=== PATIENT | female | born 1940 | race Caucasian/White ===

== ENCOUNTER 2017-04-17 14:36 | Inpatient (IN) ==
[2017-04-17] MEDS ORDERED: *HR* Dextrose 50 % in Water (Syg) 50 ML SYRINGE IVP PRN (15:53)
[2017-04-17] MEDS ORDERED: D5% in Water 1,000 ML IVC PRN (15:53)
[2017-04-17] MEDS ORDERED: Dextrose Gel 15 GM PO PRN ×2 (15:53)
[2017-04-17] MEDS ORDERED: NON-FORMULARY MEDICATION 1 EACH EACH (Insulin Lispro [Humalog] 0 UNIT) SQ SCH (17:00)
[2017-04-17] MEDS: Insulin LISPRO 300 UNITS/3 ML VIAL SQ SCH ×2 (17:46→20:30)
[2017-04-17] MEDS: Insulin DETEMIR 100 UNIT/ML X5UNITS SQ SCH (20:30)
[2017-04-17] MEDS: Melatonin 3 MG TABLET PO PRN (20:39)
[2017-04-17] MEDS: *HR* HYDROcodone/Acet 5/325 mg TABLET PO PRN (23:34)
[2017-04-18] MEDS: Nitroglycerin 0.4 MG TAB.SUBL SL PRN ×2 (05:41→12:36)
[2017-04-18 07:20] LABS: Basophils # 0.1 K/mcL (0.0-0.2); Basophils % 0.7 %; Eosinophils # 0.2 K/mcL (0.0-0.6); Eosinophils % 1.2 %; Hematocrit 34.8 % (35.3-44.9); Hemoglobin 11.7 g/dL (11.5-15.4); Immature Granulocytes % 0.2 % (0-4); Lymphocytes # 3.4 K/mcL (0.6-4.6); Lymphocytes % 28.1 %; Mean Corpuscular HGB Conc 33.6 g/dL (31.6-35.5); Mean Corpuscular Hemoglobin 30.9 pg (28.0-33.3); Mean Corpuscular Volume 91.8 fL (83.0-100.0); Mean Platelet Volume 10.8 fL (9.4-12.4); Monocytes # 1.1 K/mcL (0.0-1.3); Monocytes % 9.2 %; Neutrophils # 7.3 K/mcL (1.6-8.9); Platelet Count 229 K/mcL (140-400); Red Blood Count 3.79 M/mcL (3.82-4.97); Red Cell Distribution Width 13.1 % (11.5-14.5); Segmented Neutrophils % 60.6 %
[2017-04-18 07:34] LABS: Prothrombin Time 11.1 Seconds (9.4-12.1)
[2017-04-18] MEDS: Insulin LISPRO 300 UNITS/3 ML VIAL SQ SCH ×4 (08:02→20:09)
[2017-04-18 08:49] LABS: BUN/Creatinine Ratio 17 (6-26); Blood Urea Nitrogen 14 mg/dL (7-20); Carbon Dioxide 23 mEq/L (19-29); Chloride 105 mEq/L (98-109); Glucose 188 mg/dL (70-99); Osmolality,Calculated 293 (280-300); Potassium 3.7 mEq/L (3.5-4.5); Sodium 139 mEq/L (136-145); eGFR For African Americans > 60 (> 60); eGFR For Non-African Americans > 60 (> 60)
[2017-04-18] MEDS: Aspirin Enteric Coated 81 MG Tablet PO SCH (09:31)
[2017-04-18] MEDS: Insulin DETEMIR 100 UNIT/ML X5UNITS SQ SCH ×2 (09:32→20:07)
--- NOTE | 2017-04-18 15:34 | Internal Med History&Physical ---
Date of Encounter: 04/18/17 Time of Encounter: 15:15 Assessment and Plan (1) Carotid stenosis, bilateral Current visit: No Status: Chronic Status post right CEA 04/16/2017. Continue aspirin, Plavix, and follow-up with surgeon as directed (2) Diabetes Current visit: No Status: Chronic Hemoglobin A1c was 8.2% on 03/19/2017. Continue Levemir and Accu-Cheks with SSI. Qualifiers: Diabetes mellitus type: type 2 Diabetes mellitus complication status: without complication Diabetes mellitus termite helper insulin use: with termite helper use Qualified Code(s): E11.9 - Type 2 diabetes mellitus without complications ; Z79.4 - halfway (current) use of insulin; Z79.4 - local intermodal truck driver (current) use of insulin; Z79.4 - local intermodal truck driver (current) use of insulin; Z79.4 - local intermodal truck driver ( current) use of insulin (3) CVA (cerebral vascular accident) Current visit: No Status: Acute Continue aspirin and Plavix with therapy. Qualifiers: CVA mechanism: stenosis Precerebral and cerebral artery: posterior cerebral artery Laterality of affected vessel: right Qualified Code(s): I63.531 - Cerebral infarction due to unspecified occlusion or stenosis of right posterior cerebral artery Internal Medicine - H&P: HPI Chief complaint: Postop right CEA Admitted From: Hospital to Hospital Transfer Plans for Post Hospital Care: Home History of present illness: Ms. Langley is a 77 year old female who was readmitted to [facility] swing bed April 17 following a March 21 - April 15 swing bed stay after [facility] hospitalization March 18 for moderate to large acute infarct in the right temporal/occipital lobe and lacunar infarcts in the right thalamus. Doppler studies showed 90% DEL and 50% LICA stenosis. She was maintained on aspirin and Plavix during swing bed stay. She underwent right carotid endarterectomy by Dr. Hughes at [facility]. Her postoperative course was unremarkable and she was readmitted to swing bed for ongoing therapy. She reports previous CVA approximately 2003 with slight left-sided residual weakness. She denies seizures or other neurologic problems. Past Med Surg Social Fam HX - Past Medical History Medical history: CVA, diabetes Psychiatric history: no psych history - Past Surgical History Surgical History: - Social History Smoking Status: Former smoker Smokeless Tobacco Status: No Alcohol use: none Drug use: none - Family History Brother Hx Family Endocrine Disorder: Yes (DM) Internal Medicine - H&P: Meds Aspirin [Lo-Dose Aspirin EC] 81 mg PO DAILY 03/17/17 [History] Atorvastatin [Lipitor] 20 mg PO HS tablet 03/21/17 [Rx] Clopidogrel [Plavix] 75 mg PO DAILY tablet 03/21/17 [Rx] Docusate [Colace] 100 mg PO DAILY PRN 04/16/17 [History] Insulin DETEMIR [Levemir] 10 unit SQ BID 04/16/17 [History] Insulin LISPRO [Humalog] 2 - 7 unit SQ ACHS 04/16/17 [History] Melatonin 5 mg PO HS PRN 04/16/17 [History] HYDROcodone/Acet 5/325 mg [[place] 5-325 mg] 1 tab PO Q6HR PRN #16 tablet [Rx] 3 Allergy/AdvReac Type Severity Reaction Status Date / Time No Known Allergies Allergy Verified 03/17/17 21:43 All Systems PM: A 10-system review of systems was performed and is negative for pertinent findings except as documented above in the HPI. Review of systems: Review of systems from her March 2017 [facility] hospitalization were reviewed and revised as below. Gen.: She states her weight has increased at least 15 pounds in the past year, unintentionally Cardiovascular: She denies VT hypertension heart failure angina DVT or pulmonary embolus. Respiratory: She smoked from age [age] but states only 2-3 cigarettes per day. She denies chronic lung disease. GI: She denies disorders of her liver gallbladder or exocrine pancreas : She denies hematuria dysuria or kidney stones Neurologic: As per history of present illness Endocrine: She was diagnosed with DM 2 approximately 20 years ago. Hemoglobin A1c was 8.2% on 03/19/2017. She denies thyroid disease. Lipid profile showed total cholesterol 188, triglycerides 142, HDL 44, and LDL 116 with total/HDL ratio 4.30 on 03/19/2017. Hematology/oncology: She denies blood disorders cancers or anemia Psychiatric: She denies anxiety depression or other mental health issues Musk skeletal: She denies arthritis gout or other bone joint or muscle disorders. - Constitutional Vitals: Temp Pulse Resp BP Pulse Ox 98.1 F 73 20 135/61 100 04/18/17 07:46 04/18/17 14:14 04/18/17 12:02 04/18/17 14:14 04/18/17 14:14 Exam: Gen.: She is a well-developed well-nourished female lying in bed who appears in no acute distress HEENT: Head is atraumatic and normocephalic. Eyes: EOMI. There is no scleral icterus. Mouth: Mucosa is moist. Neck: She has a right carotid endarterectomy incision with jamshid-incisional ecchymosis. There is no significant erythema or drainage from the wound. Heart: Regular without murmurs gallops or ectopics Lungs: No wheezes or crackles were heard. Abdomen: Soft and nontender. No masses or guarding noted. Extremities: There is no cyanosis edema, or clubbing noted. Dorsalis pedis and posterior tibial pulses are trace to 1+ palpable bilaterally. Neurologic: Mental status: She is able to answer a few questions but is minimally conversational. Cranial nerves: Smile is symmetric. Forehead wrinkles bilaterally. Tongue protrudes midline. EOMI. Motor: She has difficulty extending her arms because of pain in her shoulders. There is no obvious pronator drift. Cerebellar: Finger to nose is intact bilaterally. Skin: Warm and dry. Internal Med - H&P Results - Labs CBC & Chem 7: 04/18/17 06:25 04/18/17 06:25 Labs: Short CBC 04/18/17 Range/Units 06:25 WBC 12.1 H (4.3-11.1) K/mcL Hgb 11.7 (11.5-15.4) g/dL Hct 34.8 L (35.3-44.9) % Plt Count 229 (140-400) K/mcL Neutrophils # 7.3 (1.6-8.9) K/mcL BMP 04/18/17 06:25 Sodium 139 Potassium 3.7 Chloride 105 Carbon Dioxide 23 BUN 14 Creatinine 0.82 Glucose 188 H Calcium 9.0
[2017-04-18] MEDS: Melatonin 3 MG TABLET PO PRN (20:06)
[2017-04-19] MEDS: Insulin LISPRO 300 UNITS/3 ML VIAL SQ SCH ×4 (07:24→20:09)
[2017-04-19] MEDS: Insulin DETEMIR 100 UNIT/ML X5UNITS SQ SCH ×2 (09:23→20:09)
[2017-04-19] MEDS: Aspirin Enteric Coated 81 MG Tablet PO SCH (09:23)
[2017-04-19] MEDS: Melatonin 3 MG TABLET PO PRN (20:09)
[2017-04-19] MEDS: *HR* HYDROcodone/Acet 5/325 mg TABLET PO PRN (23:04)
[2017-04-20] MEDS: Aspirin Enteric Coated 81 MG Tablet PO SCH (08:32)
[2017-04-20] MEDS: Insulin LISPRO 300 UNITS/3 ML VIAL SQ SCH ×4 (08:40→19:48)
[2017-04-20] MEDS: Insulin DETEMIR 100 UNIT/ML X5UNITS SQ SCH ×2 (08:40→19:48)
[2017-04-20] MEDS ORDERED: Simethicone 80 MG TAB.CHEW PO PRN (12:36)
--- NOTE | 2017-04-20 12:40 | Internal Med Progress Note ---
Date of Encounter: 04/20/17 Time of Encounter: 12:30 - Assessment and plan (1) Carotid stenosis, bilateral Current Visit: No Status: Chronic Assessment and plan: April 20. Status post right CEA 04/16/2017. Continue aspirin, Plavix, and follow-up with surgeon (2) Diabetes Current Visit: No Status: Chronic Assessment and plan: April 20. Hemoglobin A1c was 8.2% on 03/19/2017. Continue Levemir and Accu- Cheks with SSI Qualifiers: Diabetes mellitus type: type 2 Diabetes mellitus complication status: without complication Diabetes mellitus senior living insulin use: with senior living use Qualified Code(s): E11.9 - Type 2 diabetes mellitus without complications ; Z79.4 - exterminator helper termite (current) use of insulin; Z79.4 - exterminator helper termite (current) use of insulin; Z79.4 - residential (current) use of insulin; Z79.4 - exterminator helper termite ( current) use of insulin (3) CVA (cerebral vascular accident) Current Visit: No Status: Acute Assessment and plan: April 20. Continue aspirin, Plavix, and therapy intervention. Qualifiers: CVA mechanism: stenosis Precerebral and cerebral artery: posterior cerebral artery Laterality of affected vessel: right Qualified Code(s): I63.531 - Cerebral infarction due to unspecified occlusion or stenosis of right posterior cerebral artery (4) Abdominal pain Current Visit: Yes Status: Acute Assessment and plan: We will give simethicone for distention. We will order KUB to further evaluate. Qualifiers: Abdominal location: epigastric Qualified Code(s): R10.13 - Epigastric pain - Subjective Interval history: April 20. She complains of significant pain in her epigastric area. She has nausea but no vomiting. - Constitutional Vitals: Temp Pulse Resp BP Pulse Ox 98.2 F 76 17 141/81 99 04/20/17 07:20 04/20/17 07:20 04/20/17 07:20 04/20/17 07:20 04/20/17 07:20 Exam: She has tenderness in her epigastric area and appears to have abdominal distention overall. Bowel sounds are present and slightly high-pitched. Heart is regular without murmurs gallops or ectopics. Lungs are clear anteriorly. Extremities show no edema. Internal Medicine: Result - Labs CBC & Chem 7: 04/18/17 06:25 04/18/17 06:25 - ABG Interpretation ABG results: PT/INR, D-dimer PT 11.1 Seconds (9.4-12.1) 04/18/17 06:25
--- NOTE | 2017-04-20 17:09 | Electrocardiograph Report ---
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
[2017-04-21] MEDS: *HR* HYDROcodone/Acet 5/325 mg TABLET PO PRN ×2 (02:28→20:01)
[2017-04-21] MEDS: Aspirin Enteric Coated 81 MG Tablet PO SCH (09:39)
[2017-04-21] MEDS: Insulin DETEMIR 100 UNIT/ML X5UNITS SQ SCH ×2 (09:39→20:05)
[2017-04-21] MEDS: Insulin LISPRO 300 UNITS/3 ML VIAL SQ SCH ×3 (09:40→17:00)
[2017-04-21 14:15] LABS: ABG Base Excess -2 mEq/L (-2 to 3); ABG HCO3 22 mEq/L (21-27); ABG Oxygen Saturation 96 % (95-98); ABG PCO2 33 mmHg (35-45); ABG PH 7.43 pH Units (7.32-7.45); ABG PO2 76 mmHg (85-104); ABG TCO2 23 mEq/L (20-26)
--- NOTE | 2017-04-21 19:43 | Internal Med Progress Note ---
Date of Encounter: 04/21/17 Time of Encounter: 13:45 - Assessment and plan (1) Carotid stenosis, bilateral Current Visit: No Status: Chronic Assessment and plan: April 20. Status post right CEA 04/16/2017. Continue aspirin, Plavix, and follow-up with surgeon (2) Diabetes Current Visit: No Status: Chronic Assessment and plan: April 20. Hemoglobin A1c was 8.2% on 03/19/2017. Continue Levemir and Accu- Cheks with SSI Qualifiers: Diabetes mellitus type: type 2 Diabetes mellitus complication status: without complication Diabetes mellitus intermediate insulin use: with intermediate use Qualified Code(s): E11.9 - Type 2 diabetes mellitus without complications ; Z79.4 - ferry terminal agent (current) use of insulin; Z79.4 - ferry terminal agent (current) use of insulin; Z79.4 - ferry terminal agent (current) use of insulin; Z79.4 - ferry terminal agent ( current) use of insulin (3) CVA (cerebral vascular accident) Current Visit: No Status: Acute Assessment and plan: April 20. Continue aspirin, Plavix, and therapy intervention. Qualifiers: CVA mechanism: stenosis Precerebral and cerebral artery: posterior cerebral artery Laterality of affected vessel: right Qualified Code(s): I63.531 - Cerebral infarction due to unspecified occlusion or stenosis of right posterior cerebral artery (4) Abdominal pain Current Visit: Yes Status: Acute Assessment and plan: April 20. We will give simethicone for distention. We will order KUB to further evaluate. April 21. KUB was unremarkable. She has no abdominal complaints now. Will not workup further. Qualifiers: Abdominal location: epigastric Qualified Code(s): R10.13 - Epigastric pain (5) Syncope Current Visit: Yes Status: Acute Assessment and plan: April 21. Unwitnessed. She has regained full consciousness without any neurologic deficit. We will continue to monitor. Qualifiers: Syncope type: unspecified Qualified Code(s): R55 - Syncope and collapse - Subjective Interval history: April 20. She complains of significant pain in her epigastric area. She has nausea but no vomiting. April 21. She was found unresponsive in the chair at bedside. A rapid response was called. She had stable heart rate blood pressure and blood glucose. She regained consciousness in a few minutes and had no focal neurologic deficit. She has no complaints at present time. - Constitutional Vitals: Temp Pulse Resp BP Pulse Ox 98.4 F 89 16 134/66 98 04/21/17 19:04 04/21/17 19:04 04/21/17 19:04 04/21/17 19:04 04/21/17 19:04 Exam: She is resting comfortably in bed and appears in no acute distress. She moves her left arm as before. The right arm moves normally. She is appropriate in conversation. I reviewed her medications and lab results. Internal Medicine: Result - Labs CBC & Chem 7: 04/18/17 06:25 04/18/17 06:25 - ABG Interpretation ABG results: ABG ABG pH 7.43 pH Units (7.32-7.45) 04/21/17 14:12 ABG pCO2 33 mmHg (35-45) L 04/21/17 14:12 ABG pO2 76 mmHg (85-104) L 04/21/17 14:12 ABG O2 Saturation 96 % (95-98) 04/21/17 14:12 PT/INR, D-dimer PT 11.1 Seconds (9.4-12.1) 04/18/17 06:25 Consult Discharge Plan - Plan Referrals: NONE,PCP [Primary Care Provider] - 1 week
[2017-04-21] MEDS: Melatonin 3 MG TABLET PO PRN (20:01)
[2017-04-22] MEDS: Insulin LISPRO 300 UNITS/3 ML VIAL SQ SCH ×5 (05:21→21:57)
[2017-04-22] MEDS: Aspirin Enteric Coated 81 MG Tablet PO SCH (07:44)
[2017-04-22] MEDS: Insulin DETEMIR 100 UNIT/ML X5UNITS SQ SCH ×2 (11:17→21:56)
[2017-04-22] MEDS: *HR* HYDROcodone/Acet 5/325 mg TABLET PO PRN ×2 (18:05→21:21)
--- NOTE | 2017-04-22 19:01 | Electrocardiograph Report ---
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
[2017-04-22] MEDS: Melatonin 3 MG TABLET PO PRN (21:23)
[2017-04-23] MEDS: Aspirin Enteric Coated 81 MG Tablet PO SCH (10:14)
[2017-04-23] MEDS: Insulin DETEMIR 100 UNIT/ML X5UNITS SQ SCH ×2 (10:14→23:44)
[2017-04-23] MEDS: Insulin LISPRO 300 UNITS/3 ML VIAL SQ SCH ×4 (10:16→23:44)
--- NOTE | 2017-04-23 15:29 | Internal Med Progress Note ---
Date of Encounter: 04/23/17 Time of Encounter: 15:20 - Assessment and plan (1) Carotid stenosis, bilateral Current Visit: No Status: Chronic Assessment and plan: April 20. Status post right CEA 04/16/2017. Continue aspirin, Plavix, and follow-up with surgeon April 23. Her right neck incision is healing well. She has had no change in her neurologic status over the past few days from the completed stroke and syncopal episode. She will be discharged home tomorrow on medical therapy of aspirin and Plavix. She will follow-up with her surgeon as directed. She will need a tub transfer bench and front wheeled walker. She will need a standard wheelchair with foot rests, elevated leg rests, and anti-Tipper (all 2). She has mobility limitations that impairs her ability to bathe and toilet. The mobility limitation of the improved with a cane or walker. Use a manual wheelchair will significantly improve her ability to participate in ADLs within the home and she will use it on regular basis. She has not expressed unwillingness to use a wheelchair in the home. She has a capable caregiver available willing to provide assistance with the wheelchair. (2) Diabetes Current Visit: No Status: Chronic Assessment and plan: April 20. Hemoglobin A1c was 8.2% on 03/19/2017. Continue Levemir and Accu- Cheks with SSI April 23. Blood sugars reviewed. Will increase Levemir to 14 units twice a day. Qualifiers: Diabetes mellitus type: type 2 Diabetes mellitus complication status: without complication Diabetes mellitus fpc insulin use: with fpc use Qualified Code(s): E11.9 - Type 2 diabetes mellitus without complications ; Z79.4 - detention (current) use of insulin; Z79.4 - termite technician (current) use of insulin; Z79.4 - termite technician (current) use of insulin; Z79.4 - termite technician ( current) use of insulin (3) CVA (cerebral vascular accident) Current Visit: No Status: Acute Assessment and plan: April 20. Continue aspirin, Plavix, and therapy intervention. She will need DME as per above Qualifiers: CVA mechanism: stenosis Precerebral and cerebral artery: posterior cerebral artery Laterality of affected vessel: right Qualified Code(s): I63.531 - Cerebral infarction due to unspecified occlusion or stenosis of right posterior cerebral artery (4) Abdominal pain Current Visit: Yes Status: Acute Assessment and plan: April 20. We will give simethicone for distention. We will order KUB to further evaluate. April 21. KUB was unremarkable. She has no abdominal complaints now. Will not workup further. April 23. Remains resolved. Qualifiers: Abdominal location: epigastric Qualified Code(s): R10.13 - Epigastric pain (5) Syncope Current Visit: Yes Status: Acute Assessment and plan: April 21. Unwitnessed. She has regained full consciousness without any neurologic deficit. We will continue to monitor. April 23. No further recurrence. We will observe without further workup. Qualifiers: Syncope type: unspecified Qualified Code(s): R55 - Syncope and collapse - Subjective Interval history: April 20. She complains of significant pain in her epigastric area. She has nausea but no vomiting. April 21. She was found unresponsive in the chair at bedside. A rapid response was called. She had stable heart rate blood pressure and blood glucose. She regained consciousness in a few minutes and had no focal neurologic deficit. She has no complaints at present time. April 23. She has no new complaints. She has had no further syncopal or near syncopal episodes. She feels well and anticipates being discharged home tomorrow. - Constitutional Vitals: Temp Pulse Resp BP Pulse Ox 98.3 F 71 16 143/58 94 04/23/17 06:50 04/23/17 06:50 04/23/17 06:50 04/23/17 06:50 04/23/17 06:50 Exam: She is sitting in a chair at bedside resting currently. Her affect is bright and cheerful. I reviewed her medications and lab results. Internal Medicine: Result - Labs CBC & Chem 7: 04/18/17 06:25 04/18/17 06:25 - ABG Interpretation ABG results: ABG ABG pH 7.43 pH Units (7.32-7.45) 04/21/17 14:12 ABG pCO2 33 mmHg (35-45) L 04/21/17 14:12 ABG pO2 76 mmHg (85-104) L 04/21/17 14:12 ABG O2 Saturation 96 % (95-98) 04/21/17 14:12 PT/INR, D-dimer PT 11.1 Seconds (9.4-12.1) 04/18/17 06:25 Consult Discharge Plan - Plan Referrals: NONE,PCP [Primary Care Provider] - 1 week
[2017-04-23] MEDS: *HR* HYDROcodone/Acet 5/325 mg TABLET PO PRN (21:18)
[2017-04-23] MEDS: Melatonin 3 MG TABLET PO PRN (21:19)
[2017-04-24 06:36] VITALS: BP 142/70
[2017-04-24] MEDS: Insulin LISPRO 300 UNITS/3 ML VIAL SQ SCH (08:48)
[2017-04-24] MEDS: Aspirin Enteric Coated 81 MG Tablet PO SCH (08:49)
[2017-04-24] MEDS: Insulin DETEMIR 100 UNIT/ML X5UNITS SQ SCH (08:49)
--- NOTE | 2017-04-24 10:10 | Discharge Summary ---
Date of Encounter: 04/24/17 Time of Encounter: 10:00 - Discharge Diagnosis (1) Carotid stenosis, bilateral Priority: Primary Status: Chronic (2) Diabetes Priority: Secondary Status: Chronic Qualifiers: Diabetes mellitus type: type 2 Diabetes mellitus complication status: without complication Diabetes mellitus intermediate school teacher insulin use: with intermediate school teacher use Qualified Code(s): E11.9 - Type 2 diabetes mellitus without complications ; Z79.4 - shelter (current) use of insulin; Z79.4 - ferry terminal agent (current) use of insulin; Z79.4 - ferry terminal agent (current) use of insulin; Z79.4 - ferry terminal agent ( current) use of insulin (3) CVA (cerebral vascular accident) Priority: Secondary Status: Acute Qualifiers: CVA mechanism: stenosis Precerebral and cerebral artery: posterior cerebral artery Laterality of affected vessel: right Qualified Code(s): I63.531 - Cerebral infarction due to unspecified occlusion or stenosis of right posterior cerebral artery (4) Syncope Priority: Secondary Status: Acute Qualifiers: Syncope type: unspecified Qualified Code(s): R55 - Syncope and collapse - Discharge Medications Home Medications: Aspirin [Lo-Dose Aspirin EC] 81 mg PO DAILY 03/17/17 [History] Atorvastatin [Lipitor] 20 mg PO HS tablet 03/21/17 [Rx] Clopidogrel [Plavix] 75 mg PO DAILY tablet 03/21/17 [Rx] Docusate [Colace] 100 mg PO DAILY PRN 04/16/17 [History] Insulin LISPRO [Humalog] 2 - 7 unit SQ ACHS 04/16/17 [History] Melatonin 5 mg PO HS PRN 04/16/17 [History] HYDROcodone/Acet 5/325 mg [[place] 5-325 mg] 1 tab PO Q6HR PRN #16 tablet [Rx] Insulin DETEMIR [Levemir] 15 unit SQ BID 30 Days 04/24/17 [Rx] Allergies/Adverse Reactions: 3 Allergy/AdvReac Type Severity Reaction Status Date / Time No Known Allergies Allergy Verified 03/17/17 21:43 Procedures/tests Complete & Pending: Procedures Performed prior 72 hours Category Date Time Status EKG [ECG 12 lead ECG] [ECG] Stat Y 04/21/17 14:05 Completed Date of admission: 04/17/17 15:34 Primary care physician: PCP NONE Consults: 04/17/17 14:41 Consult to Occupational Therapy [CONS] Routine Comment: weakness Reason for Consult: Eval, Develop, and Implement P.O.C. Consult to Physical Therapy [CONS] Routine Comment: weakness Reason for Consult: Eval, Develop, and Implement P.O.C. Consult to Crusher Assembler [CONS] Routine Reason for SW Consult: D/C planning 04/18/17 16:52 Consult to Speech Therapy [CONS] Routine Comment: Evaluate, develop and implement POC Reason for Consult: CVA, cognition and speech deficits Call Completed: No - Patient Status Disposition: Home Health Service Functional capacity at discharge: wheelchair bound Overall status at discharge: patient is progressing back to baseline - Discharge Instructions Follow Up With: NONE,PCP [Primary Care Provider] - 1 week - Diet and Activity Activity: as per physical therapy Diet: advance to your usual diet Hospital course: Ms. Langley is a 77 year old female who was readmitted to [facility] swing bed April 17 following a March 21 - April 15 swing bed stay after [facility] hospitalization March 18- for moderate to large acute infarct in the right temporal/occipital lobe and lacunar infarcts in the right thalamus. Doppler studies showed 90% DEL and 50% LICA stenosis. She was maintained on aspirin and Plavix during swing bed stay. She underwent right carotid endarterectomy by Dr. Hughes at [facility]. Her postoperative course was unremarkable and she was readmitted to swing bed for ongoing therapy. She continue with aspirin and Plavix. She had a brief episode of loss of consciousness on April 21. A rapid response was called but she regained full consciousness without neurologic deficit in a few minutes. She had no further recurrence of similar episodes. Levemir dose was adjusted to improve blood sugars. On April 24 arrangements were complete for her to be discharged home. She will follow with her PCP within one week. She will have home health nurse, aide , and PT/OT. - Time Spent with Patient Total time spent providing and/or coordinating discharge services: - Constitutional Vitals: Temp Pulse Resp BP Pulse Ox 98 F 81 18 142/70 97 04/24/17 06:35 04/24/17 06:35 04/24/17 06:35 04/24/17 06:35 04/24/17 06:35
--- NOTE | 2017-04-24 10:17 | Physician Discharge Referral ---
Home Health/Hosp Referral Info Transfer to: Home Health Attending Provider: Shaun Provider in Charge Post Discharge: PCP - Diagnosis (1) Carotid stenosis, bilateral Priority: Primary Status: Chronic (2) Diabetes Priority: Secondary Status: Chronic (3) CVA (cerebral vascular accident) Priority: Secondary Status: Acute (4) Syncope Priority: Secondary Status: Resolved - Respiratory Orders Smoking Cessation: Smoking cessation has been advised. For more information, call the [place] Tobacco Quit Line at 7-136-ZVUC-NOW. - Diet/Nutrition Diet/Nutrition Orders: No Concentrated Sweets - Activity Activity Orders: Walker - Services Needed Following services are medically necessary services: Nursing, Home Health Aide, Physical Therapy, Occupational Therapy - Transfer Medications Home Medications: Aspirin [Lo-Dose Aspirin EC] 81 mg PO DAILY 03/17/17 [History] Atorvastatin [Lipitor] 20 mg PO HS tablet 03/21/17 [Rx] Clopidogrel [Plavix] 75 mg PO DAILY tablet 03/21/17 [Rx] Docusate [Colace] 100 mg PO DAILY PRN 04/16/17 [History] Insulin LISPRO [Humalog] 2 - 7 unit SQ ACHS 04/16/17 [History] Melatonin 5 mg PO HS PRN 04/16/17 [History] HYDROcodone/Acet 5/325 mg [[place] 5-325 mg] 1 tab PO Q6HR PRN #16 tablet [Rx] Insulin DETEMIR [Levemir] 15 unit SQ BID 30 Days 04/24/17 [Rx] Allergies/Adverse Reactions: 3 Allergy/AdvReac Type Severity Reaction Status Date / Time No Known Allergies Allergy Verified 03/17/17 21:43 Certification: Further, I certify that my clinical findings support that this patient is homebound (i.e. absences from home require considerable and taxing effort and are for medical reasons or nondenominational services or infrequently or short duration when for other reasons) because: Homebound Reason: Leaving home requires considerable and taxing effort due to condition (Limited mobility secondary to CVA) Attestation: My signature below is to certify that this patient is under my care and that I, or nurse practitioner, or a physician's surveyor's assistant working with me, has a face-to -face encounter with this patient.
[2017-04-24] MEDS ORDERED: FLUARIX QUAD 2017-18 36MOS UP/PF 0.5 ML SYRINGE IM ONE (10:28)
== END 2017-04-24 11:00 | disposition home health service (06) | DRG 949 ==
LOC: INPPIK 15:34
PROVIDERS: ADMIT Internal Medicine; ATTEND Internal Medicine

== ENCOUNTER 2018-01-22 18:18 | Inpatient (IN) ==
--- NOTE | 2018-01-22 18:27 | Emergency Department Note ---
Disposition Clinical Impression: Hypoglycemia, Recent myocardial infarction Disposition: Admitted As Inpatient Condition: Fair Forms: ED Satisfaction Letter Time of Disposition: 20:31 ([place]) Altered Mental Status HPI - General Chief Complaint: ED Altered Mental Status Stated Complaint: low blood sugar Time Seen by Provider: 01/22/18 18:18 Source: patient Mode of arrival: ambulatory Limitations: no limitations Nursing Notes Reviewed: Yes Vital Signs Reviewed: Yes - History of Present Illness HPI Narrative: Pleasant elderly female recently hospitalized at [facility] for a large extensive inferior wall AL with the patient ultimately resulting on hospice at home patient now presents here to the emergency room has had a history of a stroke and a recent inferior wall myocardial infarction who had a hypoglycemic event prior to arrival patient apparently dropped her sugar just prior to eating family try to call hospice but they did not respond as result they called 911 had patient brought to the ER for evaluation workup shows that the patient was hypo-glycemic at the scene but now appears to be normal glycemic is now starting to become much more responsive spoke with family about concerns of whether she had possibly had a further extension of myocardial infarction because of her history she we resulted in having an elevated troponin she'll be admitted for observation will repeat troponin during the night make sure that there was no further episodes of any further worsening of the cardiac disease transfer to [facility] complaint: altered mental status Onset (ago): Just FAST FOOD FRY COOK Timing confirmed by: spouse (Patient noted sugar of 46) Pain Severity: unable Consistency of Symptoms: getting worse Context: diabetes, other (Diabetic recent AL home for less than 24 hours from the hospital) Associated symptoms: Reports: malaise, weakness. Denies: chest pain, cough, diaphoresis, fever, chills, loss of appetite, nausea/vomiting, rash, seizure, syncope, foul smelling urine, difficulty walking, diarrhea, incontinence Treatments prior to arrival: glucose, IV fluid - Related Data Home Medications Medication Instructions Recorded Confirmed Docusate [Colace] 100 mg PO DAILY PRN 04/16/17 01/18/18 Melatonin 5 mg PO HS PRN 04/16/17 01/18/18 Aspirin [Lo-Dose Aspirin EC] 81 mg PO DAILY 01/18/18 01/18/18 Flavoxate HCl 100 mg PO TID 01/18/18 01/18/18 Insulin ASPART [NovoLOG] 15 unit SQ TIDWM 01/18/18 01/18/18 Previous Rx's Medication Instructions Recorded Atorvastatin [Lipitor] 20 mg PO HS tablet 03/21/17 Clopidogrel [Plavix] 75 mg PO DAILY tablet 03/21/17 HYDROcodone/Acet 5/325 mg [[place] 1 tab PO Q6H PRN 7 Days #28 tab 01/20/18 5-325 mg] Haloperidol Oral Conc [Haldol] 2 mg PO TID PRN 7 Days #15 mls 01/20/18 MORPHINE SUL Oral CONC [Roxanol 5 mg PO Q4H PRN 7 Days #15 ml 01/20/18 Oral Conc] Ondansetron ODT [Zofran ODT] 4 mg SL Q6HR PRN 7 Days #28 01/20/18 tab.rapdis Furosemide [Lasix] 40 mg PO DAILY #30 tablet 01/21/18 Insulin DETEMIR [Levemir] 15 unit SQ BID #2 vial 01/21/18 Sennosides/Docusate Sodium [Senna 1 each PO BID #60 tablet 01/21/18 Plus] Allergies Allergy/AdvReac Type Severity Reaction Status Date / Time No Known Allergies Allergy Verified 01/18/18 12:37 All systems ED: reviewed and negative except as stated. Review of Systems: As Per HPI Constitutional: Denies: fever, chills, weakness Eyes: Denies: eye pain, eye discharge ENT ED: Denies: ear pain Cardiovascular: Denies: chest pain Respiratory: Denies: cough, dyspnea Gastrointestinal: Denies: abdominal pain, nausea Genitourinary: Denies: urgency, dysuria Musculoskeletal: Denies: back pain, neck pain Integumentary: Denies: rash, abrasion, lesions Neurological: Reports: weakness, confusion. Denies: headache Psychiatric: Denies: anxiety, depression Endocrine: Reports: fatigue, polydipsia, polyuria. Denies: heat or cold intolerance Hematological/Lymphatic: Denies: easy bleeding, easy bruising Allergic/Immunologic: Denies: facial swelling Past Medical History - Past Medical History Attestation: Yes The following information was validated with the patient. Source: patient, old records reviewed, nursing notes reviewed Medical history: Reports: CVA Surgical history: Reports: Psychiatric history: Reports: no psych history - Social History Smoking Status: Never smoker Smokeless Tobacco Status: No Alcohol use: Reports: none Drug use: Reports: none Physical Exam - General Limitations: no limitations General appearance: alert, in no apparent distress, lethargic - Head Head exam: atraumatic, normocephalic, normal inspection - Eye Eye exam: Present: normal appearance, PERRL, EOMI - ENT ENT exam: normal exam, normal oropharynx, mucous membranes moist, TM's normal bilaterally, normal external ear exam - Neck Neck exam: Present: normal inspection, full ROM, trachea midline - Chest Chest inspection: Present: normal inspection, symmetric chest wall rise - Respiratory Respiratory exam: Present: normal lung sounds bilaterally - Cardiovascular Cardiovascular exam: Present: regular rate, normal rhythm, normal heart sounds - Abdominal Exam Abdominal exam: Present: soft, Non-Tender, normal bowel sounds - Extremities Exam Extremities exam: Present: normal inspection, normal capillary refill, other ( Very limited use of the left hand side as result of a extensive stroke). Absent : full ROM, pedal edema, joint swelling - Back Exam Back exam: Present: normal inspection - Neurological Exam Neurological exam: Present: oriented X3, other (Easily aroused elderly female) - Psychiatric Psychiatric exam: Present: normal affect, normal mood - Skin Skin exam: Present: warm, dry, intact, normal color Course Course Narrative: Patient immediately seen and examined the patient was noted to have a sugar of 112 diabetic order was written for an urinalysis laboratory data was done with results having been obtained patient is noted to have a troponin 2.49 the patient had a recent AL as a result this may be an actually downgoing number but with the patient's recent hypoglycemia the body may be stressed we need to make sure that she did not have any recent risk for a recurrent injury she is still under hospice she is DNR CC family is aware though that monitoring for a hypoglycemia this evening as the course and plan patient transferred to [facility] Dr. Dunn agreed to accept the patient if hospice was agreeable with just monitoring over the course of night hospices returned the call and agrees that for the first 24 hours there is no modification needs to be done with the hospitalist agreement at this time Vital Signs Temperature 98.7 F 01/22/18 18:30 Pulse Rate 65 01/22/18 18:30 Respiratory Rate 14 01/22/18 18:30 Blood Pressure 110/62 01/22/18 18:30 O2 Sat by Pulse Oximetry 98 01/22/18 18:30 Temperature 98.7 F 01/22/18 18:30 Pulse Rate 65 01/22/18 18:30 Respiratory Rate 14 01/22/18 18:30 Blood Pressure 110/62 01/22/18 18:30 O2 Sat by Pulse Oximetry 98 01/22/18 18:30 Oxygen Delivery Oxygen Delivery Nasal Cannula Altered Mental Status - Differential Diagnosis Likely: altered mental status, hypoglycemia - Medical Records Medical records reviewed: Yes I reviewed the patient's medical records. - Lab Data Lab results reviewed: Yes I reviewed the patient's lab results. Result diagrams: 01/22/18 18:52 01/22/18 18:52 Lab Results 01/22/18 01/22/18 Range/Units 18:52 18:52 WBC 8.8 (4.3-11.1) K/mcL RBC 2.90 L (3.82-4.97) M/mcL Hgb 7.6 L (11.5-15.4) g/dL Hct 25.1 L (35.3-44.9) % MCV 86.6 (83.0-100.0) fL MCH 26.2 L (28.0-33.3) pg MCHC 30.3 L (31.6-35.5) g/dL RDW 15.9 H (11.5-14.5) % Plt Count 322 (140-400) K/mcL MPV 10.3 (9.4-12.4) fL Immature Gran % 0.3 (0-4) % Seg Neutrophils % 86.4 % Lymphocytes % 4.0 % Monocytes % 8.7 % Eosinophils % 0.5 % Basophils % 0.1 % Neutrophils # 7.6 (1.6-8.9) K/mcL Lymphocytes # 0.4 L (0.6-4.6) K/mcL Monocytes # 0.8 (0.0-1.3) K/mcL Eosinophils # 0.0 (0.0-0.6) K/mcL Basophils # 0.0 (0.0-0.2) K/mcL Sodium 136 (136-145) mEq/L Potassium 3.2 L (3.5-5.1) mEq/L Chloride 101 (98-107) mEq/L Carbon Dioxide 25 (23-29) mEq/L BUN 20 (8-23) mg/dL Creatinine 0.95 (0.60-1.20) mg/dL Est GFR ( Amer) > 60 (> 60) Est GFR (Non-Af Amer) 57 L (> 60) BUN/Creatinine Ratio 21 (6-26) Glucose 113 H (70-105) mg/dL Calculated Osmolality 285 (280-300) Calcium 8.4 L (8.6-10.3) mg/dL Troponin I 2.49 H* (< 0.04) ng/mL - Radiology Data Radiology results reviewed: Yes I reviewed the patient's radiology results. ITS Impressions Chest X-Ray 01/22/18 19:28 IMPRESSION: 1. Poor inspiration for the exam. 2. Findings typical of congestive heart failure. Pneumonia is a consideration in areas of consolidation. 3. Calcific atherosclerosis aorta. 4. Cardiomegaly. D/ / Jamin Rodas / Jamin Rodas Interpreting Provider: Jamin Rodas - EKG Data EKG attestation: Yes I reviewed and interpreted this EKG. EKG results narrative: Patient's had a recent evidence of EKG changes when compared to previous EKG from 01/17/2018 at that time she is having acute inferior infarct on today's EKG that she has been V2 V3 downward sloping and and aVF do not see any acute ST segment elevation compared to previous there to previous EKG with a rate 64-year -old 176 26 QT 441 Binger TPA Checklist - LKW: 3-4.5 hrs Add. Warnings/Precautions Patient/family understanding: The patient/family members have been counseled and understood the risk, benefit , and alternatives of treatment. Critical Care Time Critical Care Time: No
[2018-01-22 19:01] LABS: Basophils % 0.1 %; Eosinophils % 0.5 %; Hematocrit 25.1 % (35.3-44.9); Hemoglobin 7.6 g/dL (11.5-15.4); Immature Granulocytes % 0.3 % (0-4); Lymphocytes # 0.4 K/mcL (0.6-4.6); Mean Corpuscular HGB Conc 30.3 g/dL (31.6-35.5); Mean Corpuscular Hemoglobin 26.2 pg (28.0-33.3); Mean Corpuscular Volume 86.6 fL (83.0-100.0); Mean Platelet Volume 10.3 fL (9.4-12.4); Monocytes # 0.8 K/mcL (0.0-1.3); Monocytes % 8.7 %; Neutrophils # 7.6 K/mcL (1.6-8.9); Platelet Count 322 K/mcL (140-400); Red Cell Distribution Width 15.9 % (11.5-14.5); Segmented Neutrophils % 86.4 %
[2018-01-22 19:19] LABS: BUN/Creatinine Ratio 21 (6-26); Blood Urea Nitrogen 20 mg/dL (8-23); Calcium 8.4 mg/dL (8.6-10.3); Carbon Dioxide 25 mEq/L (23-29); Chloride 101 mEq/L (98-107); Glucose 113 mg/dL (70-105); Osmolality,Calculated 285 (280-300); Potassium 3.2 mEq/L (3.5-5.1); Sodium 136 mEq/L (136-145); eGFR For Non-African Americans 57 (> 60)
[2018-01-22 19:51] LABS: Troponin I 2.49 ng/mL (< 0.04)
[2018-01-22 20:51] LABS: Bilirubin,Urine Negative (Negative); Blood,Urine Moderate (Negative); Clarity,Urine Cloudy (Clear); Color,Urine Yellow (Yellow); Glucose,Urine (UA) Normal (Normal); Ketones,Urine Negative (Negative); Leukocyte Esterase,Urine Large (Negative); Nitrite,Urine Negative (Negative); PH,Urine 5.5 pH Units (5.0-8.0); Protein,Urine Negative (Neg-Trace); Urobilinogen,Urine Normal (Normal)
[2018-01-22 21:00] LABS: Bacteria,Urine Many per hpf (None-Few); Hyaline Casts,Urine Few per lpf (None-Few); Mucus,Urine Moderate (Few); Squamous Epithelial Cell,Urine Few per lpf (None-Few); WBC,Urine 30-50 per hpf (0-3)
[2018-01-22] MEDS ORDERED: *HR* Dextrose 50 % in Water (Syg) 50 ML SYRINGE IVP PRN (22:44)
[2018-01-22] MEDS ORDERED: D5% in Water 1,000 ML IVC PRN (22:44)
[2018-01-22] MEDS ORDERED: MORPHINE SUL Oral CONC 10 MG/0.5 ML ORAL.SYG PO PRN (22:44)
[2018-01-22] MEDS ORDERED: Naloxone 0.4 MG/ML INJ IVP PRN (22:44)
[2018-01-22] MEDS ORDERED: Ondansetron ODT 4 MG TAB.RAPDIS SL PRN (22:44)
[2018-01-22] MEDS ORDERED: Dextrose Gel 15 GM/37.5 ML TUBE PO PRN ×2 (22:44)
[2018-01-22] MEDS ORDERED: Haloperidol Oral Conc 10 MG/5 ML UDC PO PRN (22:44)
[2018-01-22] MEDS: FLAVOXATE HCL 100 MG PO SCH (23:15)
[2018-01-22] MEDS: Sennosides/Docusate Sodium TABLET PO SCH (23:20)
[2018-01-23] MEDS: Furosemide 40 MG TABLET PO SCH (10:37)
[2018-01-23] MEDS: Aspirin Enteric Coated 81 MG Tablet PO SCH (10:37)
[2018-01-23] MEDS: Sennosides/Docusate Sodium TABLET PO SCH ×2 (10:37→20:05)
[2018-01-23] MEDS: Insulin LISPRO 300 UNITS/3 ML VIAL SQ SCH ×3 (12:11→17:40)
[2018-01-23] MEDS: FLAVOXATE HCL 100 MG PO SCH ×3 (12:20→20:07)
--- NOTE | 2018-01-23 13:43 | Internal Med History&Physical ---
Date of Encounter: 01/23/18 Time of Encounter: 13:00 Assessment and Plan (1) Hypoglycemia Current visit: Yes Status: Acute Insulin was discontinued in emergency room. Will restart Levemir and do Accu- Cheks with SSI. (2) Pneumonia Current visit: Yes Status: Acute Chest x-ray showed bibasilar consolidation with bilateral pleural effusions. Will start Levaquin with lactobacillus. Qualifiers: Pneumonia type: due to unspecified organism Laterality: bilateral Lung location: lower lobe of lung Qualified Code(s): J18.1 - Lobar pneumonia, unspecified organism (3) UTI (urinary tract infection) Current visit: Yes Status: Acute UA shows likely UTI. Will start Levaquin empirically with lactobacillus. Qualifiers: Urinary tract infection type: site unspecified Hematuria presence: with hematuria Qualified Code(s): N39.0 - Urinary tract infection, site not specified; R31.9 - Hematuria, unspecified (4) Hypokalemia Current visit: Yes Status: Acute Supplemental potassium will be given. (5) Diabetes Current visit: No Status: Chronic Restart Levemir but hold home dose of NovoLog. Continue Accu-Cheks with SSI Qualifiers: Diabetes mellitus type: type 2 Diabetes mellitus fdc insulin use: with fdc use Diabetes mellitus complication status: without complication Qualified Code(s): E11.9 - Type 2 diabetes mellitus without complications; Z79.4 - residential (current) use of insulin (6) CVA (cerebral vascular accident) Current visit: No Status: Chronic Continue aspirin 81 mg daily. Qualifiers: CVA mechanism: stenosis Precerebral and cerebral artery: posterior cerebral artery Laterality of affected vessel: right Qualified Code(s): I63.531 - Cerebral infarction due to unspecified occlusion or stenosis of right posterior cerebral artery (7) Anemia Current visit: No Status: Acute Will order anemia testing in a.m. Qualifiers: Anemia type: unspecified type Qualified Code(s): D64.9 - Anemia, unspecified (8) Acute systolic (congestive) heart failure Current visit: No Status: Acute LVEF of 30-35% on heart cath. Echocardiogram report reviewed. Add isosorbide and continue Lasix. Blood pressure likely not tolerant of beta giovanni or ACEI/ ARB. Internal Medicine - H&P: HPI Chief complaint: Weakness, hypoglycemia Admitted From: Emergency Dept Plans for Post Hospital Care: Home History of present illness: Ms. Langley is a 77 year old female who was brought to emergency room for reported decreased responsiveness. Blood sugar at home was found to be 46 per ER report. The ER report also states family tried to call hospice personnel but was unable to reach them so 911 was called and patient was brought to emergency room. She was admitted to [facility] for ongoing care needs. She is a fair to poor historian. She had moderate to large right temporal/ occipital lobe and lacunar infarcts in the right thalamus March 2017. Carotid Doppler study showed 90% DEL and 50% LICA stenosis. She underwent right carotid endarterectomy 04/16/[address] Hughes at [facility]. She was at [facility] swing bed postoperatively. She reported previous CVA approximately 2003 with slight left-sided residual weakness. She denies history of seizures. Early dementia is felt to be present. She was hospitalized at [facility] with STEMI January 17-. Heart catheter showed LMCA free of disease, LAD with 99% stenosis in midportion and 70% stenosis and distal portion and 60-70% stenosis in the diagonal, 99% stenosis in the mid circumflex and OM, 60% stenosis in the proximal RCA 90% stenosis in the mid RCA. LVEF was 30-35%. Cardiovascular surgery was consult admitted did not feel she was a candidate for surgical bypass procedure. Cardiology did not feel stents were indicated and she was placed on medical therapy and discharged home. She denied previous heart failure DVT or pulmonary embolus at her April 2017 admission. Past Med Surg Social Fam HX - Past Medical History Medical history: CVA, hyperlipidemia, hypertension, myocardial infarction Additional medical history: HTN. HIGH CHOLESTEROL. LEFT-SIDED WEAKNESS Psychiatric history: no psych history - Past Surgical History Surgical History: - Social History Smoking Status: Never smoker Smokeless Tobacco Status: No Alcohol use: none Drug use: none - Family History Brother Hx Family Endocrine Disorder: Yes (DM) Internal Medicine - H&P: Meds Atorvastatin [Lipitor] 20 mg PO HS tablet 03/21/17 [Rx] Clopidogrel [Plavix] 75 mg PO DAILY tablet 03/21/17 [Rx] Docusate [Colace] 100 mg PO DAILY PRN 04/16/17 [History] Melatonin 5 mg PO HS PRN 04/16/17 [History] Aspirin [Lo-Dose Aspirin EC] 81 mg PO DAILY 01/18/18 [History] Flavoxate HCl 100 mg PO TID 01/18/18 [History] Insulin ASPART [NovoLOG] 15 unit SQ TIDWM 01/18/18 [History] HYDROcodone/Acet 5/325 mg [[place] 5-325 mg] 1 tab PO Q6H PRN 7 Days #28 tab 01/20 [Rx] Haloperidol Oral Conc [Haldol] 2 mg PO TID PRN 7 Days #15 mls 01/20/18 [Rx] MORPHINE SUL Oral CONC [Roxanol Oral Conc] 5 mg PO Q4H PRN 7 Days #15 ml [Rx] Ondansetron ODT [Zofran ODT] 4 mg SL Q6HR PRN 7 Days #28 tab.rapdis 01/20/18 [Rx ] Furosemide [Lasix] 40 mg PO DAILY #30 tablet 01/21/18 [Rx] Insulin DETEMIR [Levemir] 15 unit SQ BID #2 vial 01/21/18 [Rx] Sennosides/Docusate Sodium [Senna Plus] 1 each PO BID #60 tablet 01/21/18 [Rx] 3 Allergy/AdvReac Type Severity Reaction Status Date / Time No Known Allergies Allergy Verified 01/18/18 12:37 All Systems PM: A 10-system review of systems was performed and is negative for pertinent findings except as documented above in the HPI. Review of systems: Review of systems from her April 2017 [facility] swing bed stay were reviewed and revised as below. Gen.: Her weight has increased from 71.486 kg on 04/24/2017 to 75.523 kg at present time. Cardiovascular: As per history of present illness Respiratory: She smoked from age [age] but states only 2-3 cigarettes per day. She denies chronic lung disease. GI: She denies disorders of her liver gallbladder or exocrine pancreas : She denies hematuria dysuria or kidney stones Neurologic: As per history of present illness Endocrine: She was diagnosed with DM 2 approximately 20 years ago. Hemoglobin A1c was 8.2% on 03/19/2017. She denies thyroid disease. Lipid profile showed total cholesterol 188, triglycerides 142, HDL 44, and LDL 116 with total/HDL ratio 4.30 on 03/19/2017. Hematology/oncology: She denies blood disorders cancers or anemia Psychiatric: She denies anxiety depression or other mental health issues Musk skeletal: She denies arthritis gout or other bone joint or muscle disorders. - Constitutional Vitals: Temp Pulse Resp BP Pulse Ox 98.2 F 98 18 129/76 95 01/23/18 09:30 01/23/18 09:30 01/23/18 09:30 01/23/18 09:30 01/23/18 09:30 Exam: Gen.: She is a well-developed well-nourished female lying in bed who appears in no severe distress. HEENT: Head is atraumatic and normal cephalic. Eyes: EOMI. There is no scleral icterus. Mouth: Mucosa is moist. Neck: There is no thyromegaly or adenopathy noted. Heart: Regular without murmurs gallops or ectopics Lungs: No wheezes or crackles are heard. Abdomen: Soft and nontender. No masses or guarding are noted. Extremities: There is no cyanosis edema or clubbing noted. Dorsalis pedis and posterior tibial pulses are trace to 1+ palpable bilaterally. Neurologic: Mental status: She is talkative and able to answer a few questions but does not remember many details of her history. Cranial nerves: Smile is symmetric. Forehead wrinkles bilaterally. Tongue protrudes midline. EOMI. She has left visual field deficits. Motor: She cannot maintain her left arm lifted off the bed. She has pronator drift. Right arm moves normally. Cerebellar: Finger to nose is intact with the right hand. Skin: Warm and dry Internal Med - H&P Results - Labs CBC & Chem 7: 01/22/18 18:52 01/22/18 18:52 Labs: Cardiac Enzymes 01/23/18 01/23/18 Range/Units 03:47 07:26 Troponin I 2.67 H* 2.67 H* (< 0.04) ng/mL
[2018-01-23] MEDS ORDERED: levoFLOXacin 500 MG TABLET PO SCH (14:00)
[2018-01-23] MEDS: Isosorbide MONOnitrate (24 HR) 30 MG TAB.ER.24H PO SCH (14:45)
[2018-01-23 19:58] LABS: % Iron Saturation 5 % (15-50); Iron 18 mcg/dL (50-170); Transferrin 247 mg/dL (203-362)
[2018-01-23] MEDS: *HR* HYDROcodone/Acet 5/325 mg TABLET PO PRN (20:06)
[2018-01-23] MEDS: Lactobacillus 1 EACH CAP.SPRINK PO SCH (20:06)
[2018-01-23] MEDS: Melatonin 3 MG TABLET PO PRN (20:07)
[2018-01-23] MEDS: Insulin DETEMIR 100 UNIT/ML X5UNITS SQ SCH (20:07)
[2018-01-23 20:25] LABS: Folate 16.9 ng/mL (3.0-16.0)
[2018-01-24] MEDS: *HR* HYDROcodone/Acet 5/325 mg TABLET PO PRN ×2 (02:47→19:37)
[2018-01-24 06:38] LABS: Basophils # 0.1 K/mcL (0.0-0.2); Basophils % 0.8 %; Eosinophils # 0.5 K/mcL (0.0-0.6); Eosinophils % 5.9 %; Hematocrit 23.8 % (35.3-44.9); Hemoglobin 7.3 g/dL (11.5-15.4); Immature Granulocytes % 0.4 % (0-4); Lymphocytes # 1.6 K/mcL (0.6-4.6); Lymphocytes % 19.4 %; Mean Corpuscular HGB Conc 30.7 g/dL (31.6-35.5); Mean Corpuscular Volume 84.7 fL (83.0-100.0); Mean Platelet Volume 10.2 fL (9.4-12.4); Monocytes # 1.1 K/mcL (0.0-1.3); Monocytes % 12.7 %; Neutrophils # 5.1 K/mcL (1.6-8.9); Platelet Count 334 K/mcL (140-400); Red Blood Count 2.81 M/mcL (3.82-4.97); Red Cell Distribution Width 15.6 % (11.5-14.5); Segmented Neutrophils % 60.8 %
[2018-01-24 06:58] LABS: BUN/Creatinine Ratio 21 (6-26); Blood Urea Nitrogen 22 mg/dL (8-23); Calcium 8.4 mg/dL (8.6-10.3); Carbon Dioxide 30 mEq/L (23-29); Chloride 102 mEq/L (98-107); Glucose 196 mg/dL (70-105); Osmolality,Calculated 293 (280-300); Potassium 4.3 mEq/L (3.5-5.1); Sodium 137 mEq/L (136-145); eGFR For Non-African Americans 51 (> 60)
[2018-01-24 07:10] LABS: Thyroid Stimulating Hormone 4.307 mcIU/mL (0.340-5.600)
[2018-01-24] MEDS: Furosemide 40 MG TABLET PO SCH (08:37)
[2018-01-24] MEDS: Isosorbide MONOnitrate (24 HR) 30 MG TAB.ER.24H PO SCH (08:38)
[2018-01-24] MEDS: Lactobacillus 1 EACH CAP.SPRINK PO SCH ×2 (08:38→19:36)
[2018-01-24] MEDS: FLAVOXATE HCL 100 MG PO SCH ×3 (08:41→22:03)
[2018-01-24] MEDS: Sennosides/Docusate Sodium TABLET PO SCH ×2 (08:41→19:36)
[2018-01-24] MEDS: Aspirin Enteric Coated 81 MG Tablet PO SCH (08:41)
[2018-01-24] MEDS: Insulin LISPRO 300 UNITS/3 ML VIAL SQ SCH ×3 (08:51→17:30)
[2018-01-24] MEDS: Insulin DETEMIR 100 UNIT/ML X5UNITS SQ SCH ×2 (08:52→22:04)
[2018-01-24] MEDS ORDERED: levoFLOXacin 500 MG TABLET PO SCH (09:00)
--- NOTE | 2018-01-24 09:35 | Internal Med Progress Note ---
Date of Encounter: 01/24/18 Time of Encounter: 09:25 - Assessment and plan (1) Hypoglycemia Current Visit: Yes Status: Acute Assessment and plan: January 24. Increase Levemir but remain off NovoLog. Continue Accu-Cheks with SSI. (2) Pneumonia Current Visit: Yes Status: Acute Assessment and plan: January 24. Continue Levaquin and lactobacillus. Qualifiers: Pneumonia type: due to unspecified organism Laterality: bilateral Lung location: lower lobe of lung Qualified Code(s): J18.1 - Lobar pneumonia, unspecified organism (3) UTI (urinary tract infection) Current Visit: Yes Status: Acute Assessment and plan: January 24. Continue Levaquin and lactobacillus. Qualifiers: Urinary tract infection type: site unspecified Hematuria presence: with hematuria Qualified Code(s): N39.0 - Urinary tract infection, site not specified; R31.9 - Hematuria, unspecified (4) Hypokalemia Current Visit: Yes Status: Acute Assessment and plan: January 24. Resolved. Potassium level normal at 4.3. Decrease potassium supplement. (5) Diabetes Current Visit: No Status: Chronic Assessment and plan: January 24. As above Qualifiers: Diabetes mellitus type: type 2 Diabetes mellitus usp insulin use: with moth exterminator use Diabetes mellitus complication status: without complication Qualified Code(s): E11.9 - Type 2 diabetes mellitus without complications; Z79.4 - roasterman (current) use of insulin (6) CVA (cerebral vascular accident) Current Visit: No Status: Chronic Assessment and plan: January 24. Hemoglobin has decreased further. Will decrease aspirin to 81 mg every other day. Qualifiers: CVA mechanism: stenosis Precerebral and cerebral artery: posterior cerebral artery Laterality of affected vessel: right Qualified Code(s): I63.531 - Cerebral infarction due to unspecified occlusion or stenosis of right posterior cerebral artery (7) Anemia Current Visit: No Status: Acute Assessment and plan: January 24. Anemia testing shows iron 18, transferrin saturation 5%, transferrin 247, ferritin 27, B12 487, and folate 16.9. She will be given 1 unit of packed red blood cells and iron sucrose infusion. Qualifiers: Anemia type: unspecified type Qualified Code(s): D64.9 - Anemia, unspecified (8) Acute systolic (congestive) heart failure Current Visit: No Status: Acute Assessment and plan: January 24. BN peptide 960. Continue Lasix and Imdur - Subjective Interval history: January 24. She has no new complaints. - Constitutional Vitals: Temp Pulse Resp BP Pulse Ox 98.1 F 74 16 105/62 96 01/24/18 07:12 01/24/18 07:12 01/24/18 07:12 01/24/18 07:12 01/24/18 07:12 Exam: She is resting comfortably in bed and appears in no acute distress. She is pleasant and talkative. I reviewed her medications and lab results. Internal Medicine: Result - Labs CBC & Chem 7: 01/24/18 06:15 01/24/18 06:15 Labs: Short CBC 01/24/18 Range/Units 06:15 WBC 8.3 (4.3-11.1) K/mcL Hgb 7.3 L (11.5-15.4) g/dL Hct 23.8 L (35.3-44.9) % Plt Count 334 (140-400) K/mcL Neutrophils # 5.1 (1.6-8.9) K/mcL BMP 01/24/18 06:15 Sodium 137 Potassium 4.3 Chloride 102 Carbon Dioxide 30 H BUN 22 Creatinine 1.05 Glucose 196 H Calcium 8.4 L Consult Discharge Plan - Plan Referrals: NONE,PCP [Primary Care Provider] - 1 week
[2018-01-24] MEDS ORDERED: Iron Sucrose Complex 400 MG in 0.9 % Sodium Chloride 250 ML IVPB ONE (09:40)
[2018-01-24] MEDS ORDERED: Insulin DETEMIR 100 UNIT/ML X5UNITS SQ ONE (10:00)
[2018-01-24] MEDS ORDERED: 0.9 % Sodium Chloride 250 ML ONE (13:41)
[2018-01-24] MEDS: Melatonin 3 MG TABLET PO PRN (19:38)
[2018-01-25 06:17] LABS: Basophils # 0.1 K/mcL (0.0-0.2); Basophils % 0.8 %; Eosinophils # 0.6 K/mcL (0.0-0.6); Eosinophils % 7.8 %; Hematocrit 29.1 % (35.3-44.9); Hemoglobin 9.2 g/dL (11.5-15.4); Immature Granulocytes % 0.6 % (0-4); Lymphocytes # 1.2 K/mcL (0.6-4.6); Lymphocytes % 14.8 %; Mean Corpuscular HGB Conc 31.6 g/dL (31.6-35.5); Mean Corpuscular Hemoglobin 26.7 pg (28.0-33.3); Mean Corpuscular Volume 84.6 fL (83.0-100.0); Mean Platelet Volume 9.7 fL (9.4-12.4); Monocytes # 1.2 K/mcL (0.0-1.3); Monocytes % 14.5 %; Neutrophils # 5.1 K/mcL (1.6-8.9); Platelet Count 341 K/mcL (140-400); Red Blood Count 3.44 M/mcL (3.82-4.97); Red Cell Distribution Width 15.5 % (11.5-14.5); Segmented Neutrophils % 61.5 %
[2018-01-25 06:50] LABS: BUN/Creatinine Ratio 17 (6-26); Blood Urea Nitrogen 16 mg/dL (8-23); Calcium 8.7 mg/dL (8.6-10.3); Carbon Dioxide 30 mEq/L (23-29); Chloride 104 mEq/L (98-107); Glucose 91 mg/dL (70-105); Osmolality,Calculated 293 (280-300); Potassium 4.1 mEq/L (3.5-5.1); Sodium 141 mEq/L (136-145); eGFR For Non-African Americans 58 (> 60)
[2018-01-25] MEDS: Insulin LISPRO 300 UNITS/3 ML VIAL SQ SCH (08:05)
[2018-01-25] MEDS: FLAVOXATE HCL 100 MG PO SCH (08:06)
[2018-01-25] MEDS: Lactobacillus 1 EACH CAP.SPRINK PO SCH (08:10)
[2018-01-25] MEDS: Isosorbide MONOnitrate (24 HR) 30 MG TAB.ER.24H PO SCH (08:11)
[2018-01-25] MEDS: Furosemide 40 MG TABLET PO SCH (08:11)
[2018-01-25] MEDS: Sennosides/Docusate Sodium TABLET PO SCH (08:12)
[2018-01-25] MEDS: Insulin DETEMIR 100 UNIT/ML X5UNITS SQ SCH (09:15)
[2018-01-25 10:11] VITALS: BP 105/58
--- NOTE | 2018-01-25 10:30 | Discharge Summary ---
Date of Encounter: 01/25/18 Time of Encounter: 10:16 - Discharge Diagnosis (1) Hypoglycemia Priority: Primary Status: Resolved (2) Pneumonia Priority: Secondary Status: Acute Qualifiers: Pneumonia type: due to unspecified organism Laterality: bilateral Lung location: lower lobe of lung Qualified Code(s): J18.1 - Lobar pneumonia, unspecified organism (3) UTI (urinary tract infection) Priority: Secondary Status: Acute Qualifiers: Urinary tract infection type: site unspecified Hematuria presence: with hematuria Qualified Code(s): N39.0 - Urinary tract infection, site not specified; R31.9 - Hematuria, unspecified (4) Hypokalemia Priority: Secondary Status: Resolved (5) Diabetes Priority: Secondary Status: Chronic Qualifiers: Diabetes mellitus type: type 2 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 Diabetes mellitus complication status: without complication Qualified Code(s): E11.9 - Type 2 diabetes mellitus without complications; Z79.4 - penitentiary (current) use of insulin (6) CVA (cerebral vascular accident) Priority: Secondary Status: Chronic Qualifiers: CVA mechanism: stenosis Precerebral and cerebral artery: posterior cerebral artery Laterality of affected vessel: right Qualified Code(s): I63.531 - 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 Langley is a 77 year old female who was brought to emergency room for reported decreased responsiveness. Blood sugar at home was found to be 46 per ER report. The ER report also states family tried to call hospice personnel but was unable to reach them so 911 was called and patient was brought to emergency room. She was admitted to [facility] floor for ongoing care needs. Initial orders were written by the emergency room physician. I saw her on January 23 and performed the history and physical. Insulin was initially discontinued in emergency room. The Levemir was restarted but she remained off the scheduled NovoLog. Blood sugars remained satisfactory. She will remain on this regimen at home. She was started empirically on Levaquin for UTI and possible pneumonia. Urine culture showed Escherichia coli with sensitivity to Levaquin. It will be continued with lactobacillus for 3 additional days at discharge. Supplemental potassium was given and hypokalemia normalized. She will remain on supplemental potassium at discharge. Hemoglobin decreased to 7.3 on January 24. Anemia testing showed iron 18, transferrin saturation 5%, transferrin 247, ferritin 27, B12 487, and folate 16.9. She was given iron sucrose infusion. She was given 1 unit of packed red blood cells. Hemoglobin improved to 9.2 on day of discharge. Aspirin dose will be decreased to 81 mg every other day. BN peptide remained significantly elevated at 974. She was started on Imdur. This will be continued at discharge. Lanoxin will be added. Her PCP can monitor labs as needed. On January 25 she felt improved and stable for discharge home. Hospice services will be resumed upon discharge. - Time Spent with Patient Total time spent providing and/or coordinating discharge services: - Discharge Medications Prescriptions: Digoxin [Lanoxin] 0.125 mg PO DAILY #30 tablet Isosorbide MONOnitrate (24 HR) [Imdur] 60 mg PO DAILY #30 tab.er.24h Lactobacillus [Culturelle] 1 each PO BID #6 cap.sprink levoFLOXacin [Levaquin] 500 mg PO DAILY #3 tablet Potassium Chloride 10 meq PO DAILY #30 tab.er.prt Home Medications: Atorvastatin [Lipitor] 20 mg PO HS tablet 03/21/17 [Rx] Clopidogrel [Plavix] 75 mg PO DAILY tablet 03/21/17 [Rx] Docusate [Colace] 100 mg PO DAILY PRN 04/16/17 [History] Melatonin 5 mg PO HS PRN 04/16/17 [History] Flavoxate HCl 100 mg PO TID 01/18/18 [History] HYDROcodone/Acet 5/325 mg [[place] 5-325 mg] 1 tab PO Q6H PRN 7 Days #28 tab 01/20 [Rx] Haloperidol Oral Conc [Haldol] 2 mg PO TID PRN 7 Days #15 mls 01/20/18 [Rx] MORPHINE SUL Oral CONC [Roxanol Oral Conc] 5 mg PO Q4H PRN 7 Days #15 ml [Rx] Ondansetron ODT [Zofran ODT] 4 mg SL Q6HR PRN 7 Days #28 tab.rapdis 01/20/18 [Rx ] Furosemide [Lasix] 40 mg PO DAILY #30 tablet 01/21/18 [Rx] Insulin DETEMIR [Levemir] 15 unit SQ BID #2 vial 01/21/18 [Rx] Sennosides/Docusate Sodium [Senna Plus] 1 each PO BID #60 tablet 01/21/18 [Rx] Aspirin Enteric Coated [Aspirin EC] 81 mg PO Q48H tablet. 01/25/18 [Rx] Digoxin [Lanoxin] 0.125 mg PO DAILY #30 tablet 01/25/18 [Rx] Isosorbide MONOnitrate (24 HR) [Imdur] 60 mg PO DAILY #30 tab.er.24h 01/25/18 [ Rx] Lactobacillus [Culturelle] 1 each PO BID #6 cap.sprink 01/25/18 [Rx] Potassium Chloride 10 meq PO DAILY #30 tab.er.prt 01/25/18 [Rx] levoFLOXacin [Levaquin] 500 mg PO DAILY #3 tablet 01/25/18 [Rx] Allergies/Adverse Reactions: 3 Allergy/AdvReac Type Severity Reaction Status Date / Time No Known Allergies Allergy Verified 01/18/18 12:37 Date of admission: 01/23/18 17:44 Primary care physician: PCP NONE - Constitutional Vitals: Temp Pulse Resp BP Pulse Ox 97.7 F 69 16 105/58 97 01/25/18 10:00 01/25/18 10:00 01/25/18 10:00 01/25/18 10:00 01/25/18 10:00 - Patient Status Disposition: Hospice - Home Condition: Fair - Discharge Instructions Follow Up With: NONE,PCP [Primary Care Provider] - 1 week - Diet and Activity Activity: resume usual activities as tolerated Diet: advance to your usual diet
--- NOTE | 2018-01-25 17:47 | Electrocardiograph Report ---
[address] [place], [place] [address] Test Date: 2018-01-22 Pat Name: Catia Langley Department: [id number] Room: [facility] Gender: F Ride Attendant: [id number] : 1940 Requested By: Vivian Naik Order Number: [id number] Reading MD: Heidy Webster Measurements Intervals [place] Rate: 65 P: 52 [place]: 176 QRS: 7 QRSD: 126 T: 109 QT: 441 QTc: 453 Interpretive Statements SINUS RHYTHM POSSIBLE ANTERIOR MYOCARDIAL INFARCTION, OF INDETERMINATE AGE INFERIOR MYOCARDIAL INFARCTION, PROBABLY OLD Electronically Signed On 01-25-2018 17:46:06 EDT by Heidy Webster
[2018-01-26] MEDS ORDERED: Aspirin Enteric Coated 81 MG Tablet PO SCH (09:00)
== END 2018-01-25 12:55 | disposition hospice, home (50) | DRG 637 ==
LOC: EMEROOPIK 18:18 → INPPIK 18:18
PROVIDERS: ADMIT Internal Medicine; ATTEND Internal Medicine